=== PATIENT | male | born 1965 | race Caucasian/White ===

== ENCOUNTER 2016-11-15 08:44 | Observation (INO) | payer SELFPAY ==
[2016-11-15] VITALS (7 sets, daily range): BP systolic 112–138; BP diastolic 61–85; PULSE 46–79; RESP 18–21; TEMP 97.6–98.7; O2SAT 95–98
[~2016-11-15] VITALS: Ht 177.8 cm; Wt 80.0 kg
[~2016-11-15 08:44] MED LIST: BACT800T5 PO; FAMO1TAB37 PO; PRED10 PO
--- NOTE | 2016-11-15 09:29 | PD ---
HPI Chief Complaint: Facial Pain or Swelling Time Seen by Provider: 09:15 Travel History International Travel<30 days: No Contact w/Intl Traveler<30days: No History of Present Illness HPI 51-year-old male complains of right-sided facial pain and swelling. Patient states that symptoms started 2 days ago. Patient denies any recent injury. Patient denies any fever chills. Patient states the pain is sharp severe pain localized to the brace facial area. Patient states that he has difficulty with swallowing. Patient denies any chest pain or shortness of breath. Patient denies abdominal pain. Patient denies any nausea vomiting diarrhea. Patient states that the swelling is worse this morning and including around the right eyelids in the right side of face. PFSH Past Medical History Psychiatric: Yes Tetanus Vaccination: < 5 Years Social History Alcohol Use: No Tobacco Use: Yes Substance Use: No Allergies-Medications (Allergen,Severity, Reaction): Coded Allergies: No Known Allergies (Unverified , 11/15/16) Reported Meds & Prescriptions Reported Meds & Active Scripts Active No Active Prescriptions or Reported Medications Review of Systems General / Constitutional: No: Fever Eyes: No: Visual changes HENT: No: Headaches Cardiovascular: No: Chest Pain or Discomfort Respiratory: No: Shortness of Breath Gastrointestinal: No: Abdominal Pain Genitourinary: No: Dysuria Musculoskeletal: No: Pain Skin: No Rash Neurologic: No: Weakness Psychiatric: No: Depression Endocrine: No: Polydipsia Hematologic/Lymphatic: No: Easy Bruising Physical Exam Narrative GENERAL: Well-nourished, well-developed patient. SKIN: Warm and dry. HEAD: Normocephalic. EYES: No scleral icterus. No injection or drainage. NECK: Supple, trachea midline. No JVD or lymphadenopathy. CARDIOVASCULAR: Regular rate and rhythm without murmurs, gallops, or rubs. RESPIRATORY: Breath sounds equal bilaterally. No accessory muscle use. GASTROINTESTINAL: Abdomen soft, non-tender, nondistended. MUSCULOSKELETAL: No cyanosis, or edema. BACK: Nontender without obvious deformity. No CVA tenderness. Patient has redness swelling tenderness induration right facial area. Patient has edema on the right side of face including on the eyelids and the right cheek and right jaw area. Data Data Last Documented VS Vital Signs Date Time Temp Pulse Resp B/P Pulse Ox O2 Delivery O2 Flow Rate FiO2 11/15/16 09:27 18 95 Room Air 11/15/16 08:46 97.6 79 138/85 Orders Complete Blood Count With Diff (11/15/16 09:20) Comprehensive Metabolic Panel (11/15/16 09:20) Prothrombin Time / Inr (Pt) (11/15/16 09:20) Act Partial Throm Time (Ptt) (11/15/16 09:20) Blood Culture (11/15/16 09:20) Chest, Single Ap (11/15/16 09:20) Iv Access Insert/Monitor (11/15/16 09:20) Ecg Monitoring (11/15/16 09:20) Oximetry (11/15/16 09:20) Alcohol (Ethanol) (11/15/16 09:20) Sodium Chlor 0.9% 1000 Ml Inj (Ns 1000 M (11/15/16 09:30) Vancomycin Inj (Vancomycin Inj) (11/15/16 09:30) Piperacil-Tazo 3.375 Gm Premix (Zosyn 3. (11/15/16 09:30) Morphine Inj (Morphine Inj) (11/15/16 10:15) Ondansetron Inj (Zofran Inj) (11/15/16 10:15) Labs Laboratory Tests Test 11/15/16 09:30 White Blood Count 13.1 TH/MM3 Red Blood Count 5.05 MIL/MM3 Hemoglobin 15.1 GM/DL Hematocrit 44.4 % Mean Corpuscular Volume 87.9 FL Mean Corpuscular Hemoglobin 29.9 PG Mean Corpuscular Hemoglobin 34.0 % Concent Red Cell Distribution Width 13.3 % Platelet Count 246 TH/MM3 Mean Platelet Volume 6.9 FL Neutrophils (%) (Auto) 67.9 % Lymphocytes (%) (Auto) 22.2 % Monocytes (%) (Auto) 7.8 % Eosinophils (%) (Auto) 1.5 % Basophils (%) (Auto) 0.6 % Neutrophils # (Auto) 8.9 TH/MM3 Lymphocytes # (Auto) 2.9 TH/MM3 Monocytes # (Auto) 1.0 TH/MM3 Eosinophils # (Auto) 0.2 TH/MM3 Basophils # (Auto) 0.1 TH/MM3 CBC Comment DIFF FINAL Differential Comment Prothrombin Time 10.3 SEC Prothromb Time International 0.9 RATIO Ratio Activated Partial 26.4 SEC Thromboplast Time Sodium Level 140 MEQ/L Potassium Level 3.8 MEQ/L Chloride Level 106 MEQ/L Carbon Dioxide Level 24.4 MEQ/L Anion Gap 10 MEQ/L Blood Urea Nitrogen 10 MG/DL Creatinine 0.96 MG/DL Estimat Glomerular Filtration 83 ML/MIN Rate Random Glucose 97 MG/DL Calcium Level 8.4 MG/DL Total Bilirubin 0.8 MG/DL Aspartate Amino Transf 12 U/L (AST/SGOT) Alanine Aminotransferase 21 U/L (ALT/SGPT) Alkaline Phosphatase 85 U/L Total Protein 7.0 GM/DL Albumin 3.6 GM/DL Ethyl Alcohol Level LESS THAN 3 MG/DL MDM Medical Decision Making Medical Screen Exam Complete: Yes Emergency Medical Condition: Yes Interpretation(s) 10:56 AM. CBC WBC 13.1. Normal differential. CMP within normal limit. Alcohol less than 3. Differential Diagnosis Differential diagnosis including cellulitis, abscess. Narrative Course 51-year-old male with right facial pain and swelling. Normal saline solution 1 25 cc an hour. Vancomycin 1 g IV. Zosyn 3.375 g IV given. Diagnosis Primary Impression: Facial abscess Admitting Information Admitting Physician Requests: Admit Scripts No Active Prescriptions or Reported Meds Jono Shin MD Nov 15, 2016 09:29
[2016-11-15] MEDS ORDERED: PIPERACIL-TAZO 3.375 GM PREMIX 50 ML IV ONE (09:30)
[2016-11-15] MEDS ORDERED: VANCOMYCIN INJ 1,000 MG in SODIUM CHLOR 0.9% 250 ML INJ 250 ML IV ONE (09:30)
[2016-11-15 09:43] LABS: AUTOMATED NEUTROPHIL # 8.9 TH/MM3 (1.8-7.7); BASOPHIL # 0.1 TH/MM3 (0-0.2); BASOPHIL % 0.6 % (0.0-2.0); EOSINOPHIL # 0.2 TH/MM3 (0-0.4); EOSINOPHIL % 1.5 % (0.0-4.0); HEMATOCRIT 44.4 % (39.0-51.0); HEMO FLAGS DIFF FINAL; LYMPH % 22.2 % (9.0-44.0); LYMPHOCYTE # 2.9 TH/MM3 (1.0-4.8); MEAN CELL VOLUME 87.9 FL (80.0-100.0); MEAN CORPUSCULAR HEMOGLOBIN 29.9 PG (27.0-34.0); MONO % 7.8 % (0.0-8.0); NEUT % 67.9 % (16.0-70.0); PLATELET COUNT 246 TH/MM3 (150-450); RED BLOOD COUNT 5.05 MIL/MM3 (4.50-5.90); RED CELL DISTRIBUTION WIDTH 13.3 % (11.6-17.2); WHITE BLOOD COUNT 13.1 TH/MM3 (4.0-11.0)
--- NOTE | 2016-11-15 09:51 | RADRPT ---
EXAM DATE/TIME: 11/15/2016 09:36 [facility] COMPARISON: No previous studies available for comparison. INDICATIONS : Patient has a toothache and mouth has hurt for three days. MEDICAL HISTORY : None. SURGICAL HISTORY : None. ENCOUNTER: Initial ACUITY: 3 days PAIN SCORE: 0/10 LOCATION: chest FINDINGS: A single view of the chest demonstrates the lungs to be symmetrically aerated without evidence of mas s, infiltrate or effusion. The cardiomediastinal contours are unremarkable. Osseous structures are intact. CONCLUSION: Normal examination. Chano Dior MD on November 15, 2016 at 9:46 Board Certified Radiologist. This report was verified electronically.
[2016-11-15 09:53] LABS: APTT (PATIENT) 26.4 SEC (24.3-30.1); INTERNATIONAL NORMALIZED RATIO 0.9 RATIO; PROTHROMBIN TIME - PATIENT 10.3 SEC (9.8-11.6)
[2016-11-15 09:59] LABS: ANION GAP 10 MEQ/L (5-15); AST (GOT) 12 U/L (15-37); BICARBONATE 24.4 MEQ/L (21.0-32.0); BLOOD UREA NITROGEN 10 MG/DL (7-18); CHLORIDE 106 MEQ/L (98-107); GLOMERULAR FILTRATION RATE 83 ML/MIN (>89); POTASSIUM 3.8 MEQ/L (3.5-5.1); SODIUM (NA) 140 MEQ/L (136-145)
[2016-11-15 10:02] LABS: ALKALINE PHOSPHATASE 85 U/L (45-117); ALT (GPT) 21 U/L (12-78); TOTAL BILIRUBIN ADULT 0.8 MG/DL (0.2-1.0)
[2016-11-15] MEDS: SODIUM CHLOR 0.9% 1000 ML INJ 1,000 ML IV SCH (10:08)
[2016-11-15] MEDS ORDERED: MORPHINE SULFATE 4 MG/ML INJ IV PUSH ONE (10:15)
[2016-11-15] MEDS ORDERED: ONDANSETRON HCL 4 MG/2 ML VIAL IV PUSH ONE (10:15)
[2016-11-15] MEDS ORDERED: MAGNESIUM HYDROXIDE SUSP 30 ML CUP PO PRN (11:45)
[2016-11-15] MEDS ORDERED: MORPHINE SULFATE 4 MG/ML INJ IV PRN (11:45)
[2016-11-15] MEDS ORDERED: Vancomycin Consult Pharmacy 1 EA OTHER SCH (11:45)
[2016-11-15] MEDS ORDERED: SENNOSIDES 8.6 MG TAB PO PRN (11:45)
[2016-11-15] MEDS ORDERED: ACETAMINOPHEN/HYDROcodone 325 MG/5 MG TAB PO PRN (11:45)
[2016-11-15] MEDS ORDERED: ONDANSETRON HCL 4 MG/2 ML VIAL IVP PRN (11:45)
[2016-11-15] MEDS: DOCUSATE SODIUM 100 MG CAP PO SCH ×2 (11:45→21:00)
[2016-11-15] MEDS ORDERED: NALOXONE HCL 0.4 MG/ML AMP IV PRN (11:45)
[2016-11-15] MEDS ORDERED: SODIUM CHLORIDE 0.9% FLUSH 5 ML FLUSH FLUSH PRN (11:45)
[2016-11-15] MEDS ORDERED: BISACODYL 10 MG SUPP PR PRN (11:45)
[2016-11-15] MEDS ORDERED: ACETAMINOPHEN 325 MG TAB PO PRN ×2 (11:45)
[2016-11-15] MEDS: NICOTINE 21 MG/24 HR PATCH TD SCH (13:02)
[2016-11-15] MEDS ORDERED: IOHEXOL 350 MG/ML 10 ML VIAL (for RAD DIAG) IV ONE (13:50)
--- NOTE | 2016-11-15 14:32 | RADRPT ---
EXAM DATE/TIME: 11/15/2016 13:43 [facility] COMPARISON: No previous studies available for comparison. INDICATIONS : Right facial swelling for two days. IV CONTRAST: 72 cc Omnipaque 350 (iohexol) IV RADIATION DOSE: 47.82 CTDIvol (mGy) MEDICAL HISTORY : None SURGICAL HISTORY : None. ENCOUNTER: Initial ACUITY: 2 days PAIN SCALE: 7/10 LOCATION: Right facial TECHNIQUE: Volumetric scanning of the facial bones was performed. Using automated exposure control and adjustme nt of the mA and/or kV according to patient size, radiation dose was kept as low as reasonably achiev able to obtain optimal diagnostic quality images. FINDINGS: There is stranding of the subcutaneous fat involving the right face within the infraorbital region. T his is most pronounced overlying the body of the mandible. There is no abscess or fluid collection ap preciated. There is some thickening of the overlying skin. The facial vein remains patent. Small lymp h nodes are seen involving the right neck with the largest lymph node level one in nature measuring 2 .0 x 0.9 cm. No contralateral adenopathy. Mucosal thickening is seen opacifying the ethmoid air cells bilaterally, maxillary sinuses bilaterally as well as the left frontal sinus. CONCLUSION: 1. Cellulitis involving the right face centered over the mandible on the right. No abscess or periodo ntal disease appreciated. 2. Reactive adenopathy on the right. Nicholas Keys Jr., MD on November 15, 2016 at 14:13 Board Certified Radiologist. This report was verified electronically.
--- NOTE | 2016-11-15 14:35 | HHI.HP ---
HPI Service [facility] Primary Care Physician No Primary Care Physician Admission Diagnosis facial abscess Diagnoses: Chief Complaint: Facial swelling Travel History International Travel<30 Days: No Contact w/Intl Traveler <30 Da: No Traveled to Known Affected Are: No History of Present Illness 51-year-old male with no significant past medical history who presented with facial swelling. Patient states that for the past 2 or 3 days he's been having swelling on the right side of his face. He states he woke up with it that way, denies any acute injury. He isn't having constant severe pain on that side. He feels like the swelling was significantly worse yesterday, which made it difficult to speak. He's had decreased appetite. He swallowing okay. He reports that his swelling is better today and he can talk better. He does have broken teeth. He denies any fevers or chills. Denies any shortness of breath or problems breathing. Review of Systems Except as stated in HPI: all other systems reviewed are Neg Past Family Social History Past Medical History Denies Past Surgical History Denies Reported Medications None Allergies: Coded Allergies: No Known Allergies (Unverified , 11/15/16) Active Ordered Medications Current Medications Medications (Trade) Dose Ordered Sig/Dalila Route Start Time Stop Time Status Last Admin Sodium Chloride 1,000 ml @ 125 mls/hr Q8H IV 11/15/16 09:30 11/15/16 10:08 Pharmacy Profile Note 0 ml @ 0 mls/hr UNSCH OTHER 11/15/16 11:45 (Zosyn 3.375 Gm Premix) 50 ml @ 100 mls/hr Q6H IV 11/15/16 16:00 (NS Flush) 2 ml UNSCH PRN FLUSH 11/15/16 11:45 (NS Flush) 2 ml BID FLUSH 11/15/16 21:00 (Tylenol) 650 mg Q4H PRN PO 11/15/16 11:45 (Zofran Inj) 4 mg Q6H PRN IVP 11/15/16 11:45 (Dulcolax Supp) 10 mg DAILY PRN AK 11/15/16 11:45 (Colace) 100 mg Q12HR PO 11/15/16 11:45 (Milk Of Magnlydia Liq) 30 ml Q12H PRN PO 11/15/16 11:45 (Senokot) 17.2 mg Q12H PRN PO 11/15/16 11:45 (Tylenol) 650 mg Q6H PRN PO 11/15/16 11:45 ([place] 5-325 Mg) 1 tab Q4H PRN PO 11/15/16 11:45 ([place] 10-325 Mg) 1 tab Q4H PRN PO 11/15/16 11:45 (Morphine Inj) 1 mg Q3H PRN IV 11/15/16 11:45 (Narcan Inj) 0.4 mg UNSCH PRN IV 11/15/16 11:45 (Habitrol 21 Mg Patch.24 Hr) 1 patch DAILY TD 11/15/16 11:45 11/15/16 13:02 Miscellaneous Information 1 1 HS TD 11/15/16 21:00 (Vancomycin Inj/ NS 500 ml Inj) 515 ml @ 250 mls/hr Q12H IV 11/15/16 18:00 Miscellaneous Information SPECIFIC LAB TO BE DRAWN:VANCOMYCIN TROUGH DATE TO... ONCE ONCE XX 11/17/16 05:45 11/17/16 05:46 Family History Lung cancer Social History Tobacco use Drinks a 4 pack every other day Works doing automotive exhaust work Physical Exam Vital Signs Vital Signs Date Time Temp Pulse Resp B/P Pulse Ox O2 Delivery O2 Flow Rate FiO2 11/15/16 12:15 98.2 46 18 112/85 96 Room Air 11/15/16 09:27 18 95 Room Air 11/15/16 08:46 97.6 79 18 138/85 96 Physical Exam GENERAL: Well-developed well-nourished. In no acute distress. SKIN: Warm and dry. ~4x4 cm area of induration over the right cheek. HEENT: Normocephalic. Pupils equal and round. Mucous membranes pink and moist. Poor dentition with multiple broken teeth. CARDIOVASCULAR: Regular rate and rhythm. No murmur appreciated. RESPIRATORY: No accessory muscle use. Clear to auscultation. Breath sounds equal bilaterally. GASTROINTESTINAL: Abdomen soft, non-tender, nondistended. Bowel sounds x4. MUSCULOSKELETAL: No obvious deformities. No clubbing or cyanosis. No edema. NEUROLOGICAL: Awake and alert. No focal neurological deficits. Moves upper and lower extremities spontaneously. Normal speech. PSYCHIATRIC: Appropriate mood and affect; insight and judgment normal. Laboratory Laboratory Tests Test 11/15/16 09:30 White Blood Count 13.1 Red Blood Count 5.05 Hemoglobin 15.1 Hematocrit 44.4 Mean Corpuscular Volume 87.9 Mean Corpuscular Hemoglobin 29.9 Mean Corpuscular Hemoglobin 34.0 Concent Red Cell Distribution Width 13.3 Platelet Count 246 Mean Platelet Volume 6.9 Neutrophils (%) (Auto) 67.9 Lymphocytes (%) (Auto) 22.2 Monocytes (%) (Auto) 7.8 Eosinophils (%) (Auto) 1.5 Basophils (%) (Auto) 0.6 Neutrophils # (Auto) 8.9 Lymphocytes # (Auto) 2.9 Monocytes # (Auto) 1.0 Eosinophils # (Auto) 0.2 Basophils # (Auto) 0.1 CBC Comment DIFF FINAL Differential Comment Prothrombin Time 10.3 Prothromb Time International 0.9 Ratio Activated Partial 26.4 Thromboplast Time Sodium Level 140 Potassium Level 3.8 Chloride Level 106 Carbon Dioxide Level 24.4 Anion Gap 10 Blood Urea Nitrogen 10 Creatinine 0.96 Estimat Glomerular Filtration 83 Rate Random Glucose 97 Calcium Level 8.4 Total Bilirubin 0.8 Aspartate Amino Transf 12 (AST/SGOT) Alanine Aminotransferase 21 (ALT/SGPT) Alkaline Phosphatase 85 Total Protein 7.0 Albumin 3.6 Ethyl Alcohol Level LESS THAN 3 Date/Time Procedure Status Source Growth 11/15/16 09:30 Aerobic Blood Culture Received Blood Peripheral Pending 11/15/16 09:30 Anaerobic Blood Culture Received Blood Peripheral Pending Result Diagram: 11/15/1630 11/15/1630 Assessment and Plan Assessment and Plan 51-year-old male with no significant past medical history who presented with facial swelling Facial cellulitis: R/O abscess. WBC 13.1. Afebrile. Facial CT pending. Consulted maxillofacial surgery. Continue IV vancomycin and Zosyn. Nothing by mouth pending surgery eval. IVF. Pain control with oral and intravenous narcotics. Alcohol abuse: Patient counseled. CIWA protocol and rally pack. Tobacco abuse: Patient counseled. Nicotine patch. DVT prophylaxis: SCDs Written by Nima Saunders, acting as scribe for Dr. Loza on 11/15/16 at 14:34. All or portions of this note were transcribed by scribe []. I, Dr. Thomas Loza personally performed the history, physical exam, and medical decision making; and confirmed the accuracy of the information in the transcribed note. Authenticated by Dr. Thomas Loza on 11/15/16 at 15:59. Discussed Condition With Patient, Nima Turner Nov 15, 2016 14:35 Thomas Loza MD Nov 15, 2016 15:59
[2016-11-15] MEDS ORDERED: LORazepam 1 MG TAB PO PRN (14:45)
[2016-11-15] MEDS ORDERED: FLUMAZENIL 0.5 MG/5 ML VIAL IV PUSH PRN (14:45)
[2016-11-15] MEDS ORDERED: LORazepam 2 MG TAB PO PRN (14:45)
[2016-11-15] MEDS ORDERED: HALOPERIDOL LACTATE 5 MG/ML AMP IM PRN (14:45)
[2016-11-15] MEDS ORDERED: LORazepam 2 MG/ML VIAL IV PUSH PRN ×4 (14:45)
[2016-11-15] MEDS: ACETAMINOPHEN/HYDROcodone 325 MG/10 MG TAB PO PRN ×2 (15:26→20:55)
[2016-11-15] MEDS: PIPERACIL-TAZO 3.375 GM PREMIX 50 ML IV SCH (15:27)
--- NOTE | 2016-11-15 16:23 | HHI.PR ---
Immediate Post Op Note Procedure Date: Nov 15, 2016 Pre Op Diagnosis: right facial cellulites/abscess/ infected hair follicle Post Op Diagnosis: celine Surgeon: Kristopher Cardona Field Cane Scaler Helper(s): louise Giraldo's nurse Procedure: I & D right facial abscess/cellulitis Findings: pus - sent for culture Complications: none Anesthesia: Local (2:lidocaine with 1:100,000 epi approx 2.5cc) Drains: [place] (1/4 inch) Patient Condition: Good Date/Time of Procedure: SEE SURGICAL CARE RECORD Kristopher Cardona DMD Nov 15, 2016 16:23
--- NOTE | 2016-11-15 16:32 | MB ---
cc: TRINI CARDONA DMD DATE OF CONSULTATION 11/15/2016 REASON FOR CONSULTATION Right facial edema. HISTORY OF THE PRESENT ILLNESS A 51-year-old male who presented to the ER today complaining with swelling and pain on the right side of his face. The patient reports that for the last two to three days he has been having pain which originates from the right face, the region of his nasal labial fold, corner of his lip region. That is where his hair follicles are with this goatee in that region. And then severely tender to palpation to that site. And then the edema and discomfort starts to spread up from the right side from that region there. Denies any fever, chills, nausea, vomiting, any shortness of breath, any difficulty speaking or swallowing or breathing. PAST MEDICAL HISTORY He denies. PAST SURGICAL HISTORY Denies. ALLERGIES DENIES. SOCIAL HISTORY He smokes. And drinks alcohol every several days, several packs of beer. PHYSICAL EXAMINATION VITAL SIGNS: Temperature 98.6, pulse is 48, respirations 20, blood pressure 120/61, oxygen saturation of 96. HEENT: Examination of the face shows mild edema on the right side of the face but he has erythema and tenderness. Appears to have some fluctuance on the right inferior border of the inferior aspect of the nasal labial fold the right side on his face lateral to the right of the corner of the lip in that region. That is why his hair follicles are right there with his arce / goatee in that region. It appears fluctuant. Upon palpation but the patient is very tender to palpation. He has erythema in that site. Intraorally I do not see any edema inside that is communicating inside. No neck edema that is noted. Eyes are wide open. Intraorally generalized poor dentition. The patient is not sure if he popped a pimple there or he got bit by anything in that site. IMAGING CT scan of the facial bones shows swelling in the right side of the mandible, of the soft tissue that region. And there is remarkable swelling right in the area where the patient is having symptoms. No collection that is noted, that I could see at this point. LABORATORY DATA White count is 13.1. H&H is 15.1, 44.4 with platelet count of 246. PT is 10.3, INR is 0.9 and PTT 26.4. IMPRESSION AND PLAN This is a 51-year-old male with a right-sided facial edema abscess versus cellulitis, starting from the right corners of his lip region of the right nasal labial fold lateral to the mandible. Clinically appears to somewhat fluctuant and very tender in the region with erythema. Could be consistent with a foliculitis, hair follicle. Possible MRSA. We will do an I&D in that site at this point. He is already on antibiotics. We hope to send for culture any purulence, any pus that comes out of that site. And hope to change the domonique in to that site. Benefits, risks, indication of the procedure, the procedure in detail and the options of no treatment were all discussed with this patient. Risks not limited to any postop pain, infection, bleeding, damage to the soft tissue, hard tissue, anesthesia complications, recurrence of this infection, further surgeries as required. All questions and concerns were addressed. Consent is signed. Trini Cardona DMD RRT/MALINDA /3:49 PM /4:08 PM EDA
[2016-11-15] MEDS: VANCOMYCIN INJ 1,500 MG in SODIUM CHLORID 0.9% 500 ML INJ 500 ML IV SCH (18:12)
[2016-11-15] MEDS: REMOVE OLD NICODERM (NICOTINE) PATCH TD SCH (21:00)
[2016-11-16] VITALS (9 sets, daily range): BP systolic 110–125; BP diastolic 58–70; PULSE 53–78; RESP 18–21; TEMP 98.4–98.8; O2SAT 94–98
[2016-11-16] MEDS: PIPERACIL-TAZO 3.375 GM PREMIX 50 ML IV SCH ×5 (00:24→21:58)
[2016-11-16] MEDS: SODIUM CHLORIDE 0.9% FLUSH 5 ML FLUSH FLUSH SCH ×3 (00:24→21:00)
[2016-11-16] MEDS: ACETAMINOPHEN/HYDROcodone 325 MG/10 MG TAB PO PRN ×4 (04:50→22:02)
[2016-11-16] MEDS: VANCOMYCIN INJ 1,500 MG in SODIUM CHLORID 0.9% 500 ML INJ 500 ML IV SCH ×2 (05:39→17:57)
[2016-11-16 07:04] LABS: AUTOMATED NEUTROPHIL # 8.8 TH/MM3 (1.8-7.7); BASOPHIL # 0.1 TH/MM3 (0-0.2); BASOPHIL % 0.4 % (0.0-2.0); EOSINOPHIL # 0.2 TH/MM3 (0-0.4); EOSINOPHIL % 1.3 % (0.0-4.0); HEMATOCRIT 39.5 % (39.0-51.0); HEMO FLAGS DIFF FINAL; LYMPH % 15.5 % (9.0-44.0); LYMPHOCYTE # 1.9 TH/MM3 (1.0-4.8); MEAN CELL VOLUME 88.8 FL (80.0-100.0); MEAN CORPUSCULAR HEMOGLOBIN 30.4 PG (27.0-34.0); MEAN CORPUSCULAR HGB CONC 34.2 % (32.0-36.0); MONO % 8.7 % (0.0-8.0); NEUT % 74.1 % (16.0-70.0); PLATELET COUNT 220 TH/MM3 (150-450); RED BLOOD COUNT 4.45 MIL/MM3 (4.50-5.90); RED CELL DISTRIBUTION WIDTH 13.4 % (11.6-17.2)
[2016-11-16 07:37] LABS: BICARBONATE 29.5 MEQ/L (21.0-32.0); POTASSIUM 4.3 MEQ/L (3.5-5.1)
[2016-11-16] MEDS: FOLIC ACID 1 MG TAB PO SCH (07:50)
[2016-11-16] MEDS: MULTIVITAMINS/MINERALS THERAPEUTIC TAB PO SCH (07:51)
[2016-11-16] MEDS: THIAMINE HCL 100 MG TAB PO SCH (07:51)
[2016-11-16] MEDS: NICOTINE 21 MG/24 HR PATCH TD SCH (07:51)
[2016-11-16] MEDS: DOCUSATE SODIUM 100 MG CAP PO SCH ×2 (07:52→21:58)
--- NOTE | 2016-11-16 11:52 | HHI.PR ---
Subjective Remarks Follow-up for facial cellulitis and abscess. Patient had bedside abscess drainage with surgery yesterday. He reports the initial facial pain he was having has improved, but does have some soreness from the I&D. Overall his pain is improved. He states he's been able to eat better, on regular diet. He would like to go home as soon as he is able. Objective Vitals Vital Signs Date Time Temp Pulse Resp B/P Pulse Ox O2 Delivery O2 Flow Rate FiO2 11/16/16 11:41 98.4 67 20 116/69 97 11/16/16 07:44 98.5 53 20 111/68 96 11/16/16 07:00 58 11/16/16 04:51 98.8 68 18 125/70 98 11/16/16 01:30 63 11/15/16 20:39 98.7 64 21 126/74 98 11/15/16 18:22 54 11/15/16 14:38 96 21 11/15/16 14:36 98.6 48 20 120/61 98 11/15/16 12:15 98.2 46 18 112/85 96 Room Air Result Diagram: 11/16/16 0600 11/16/16 0600 Imaging Last Impressions Chest X-Ray 11/15/16 0920 Signed Impressions: Service Date/Time: Tuesday, November 15, 2016 09:36 - CONCLUSION: Normal examination. Chano Dior MD Maxillofacial CT 11/15/16 0000 Signed Impressions: Service Date/Time: Tuesday, November 15, 2016 13:43 - CONCLUSION: 1. Cellulitis involving the right face centered over the mandible on the right. No abscess or periodontal disease appreciated. 2. Reactive adenopathy on the right. Nicholas Keys Jr., MD Objective Remarks GENERAL: Well-developed well-nourished. In no acute distress. SKIN: Warm and dry. Right face with some induration, s/p I&D with [place] drain in place HEENT: Normocephalic. Pupils equal and round. Mucous membranes pink and moist. CARDIOVASCULAR: Regular rate and rhythm. No murmur appreciated. RESPIRATORY: No accessory muscle use. Clear to auscultation. Breath sounds equal bilaterally. GASTROINTESTINAL: Abdomen soft, non-tender, nondistended. Bowel sounds x4. MUSCULOSKELETAL: No obvious deformities. No clubbing or cyanosis. No edema. NEUROLOGICAL: Awake and alert. No focal neurological deficits. Moves upper and lower extremities spontaneously. Normal speech. PSYCHIATRIC: Appropriate mood and affect; insight and judgment normal. A/P Assessment and Plan 51-year-old male with no significant past medical history who presented with facial swelling Facial cellulitis: R/O abscess. WBC decreased from 13.1 to 12.0. Afebrile. Facial CT showed cellulitis. Consulted maxillofacial surgery, performed bedside I&D, cultures pending. Continue IV vancomycin and Zosyn. Tolerating full diet. IVF. Pain control with [place] as needed and IV morphine for breakthrough. Alcohol abuse: Patient counseled. CIWA protocol and rally pack. Tobacco abuse: Patient counseled. Nicotine patch. DVT prophylaxis: SCDs Written by Nima Saunders, acting as scribe for Dr. Loza on 11/16/16 at 11:52. All or portions of this note were transcribed by scribe []. I, Dr. Thomas Loza personally performed the history, physical exam, and medical decision making; and confirmed the accuracy of the information in the transcribed note. Authenticated by Dr. Thomas Loza on 11/16/16 at 16:32. Discharge Planning Follow-up cultures and maxillofacial recommendations. Possible discharge later today vs tomorrow Nima Elise Nov 16, 2016 11:52 Thomas Loza MD Nov 16, 2016 16:32
[2016-11-16] MEDS ORDERED: HYDR-3583 PO (16:33)
--- NOTE | 2016-11-16 19:00 | HHI.PR ---
Subjective Remarks pt seen and examined this evening, AAOx3, NAD, reports feeling much better, tolerating po well POD 1 s/p I & D right facial cellulitis / abscess, Objective Vital Signs Date Time Temp Pulse Resp B/P Pulse Ox O2 Delivery O2 Flow Rate FiO2 11/16/16 16:01 98.5 58 19 110/62 97 11/16/16 11:41 98.4 67 20 116/69 97 11/16/16 11:04 94 21 11/16/16 07:44 98.5 53 20 111/68 96 11/16/16 07:00 58 11/16/16 04:51 98.8 68 18 125/70 98 11/16/16 01:30 63 11/15/16 20:39 98.7 64 21 126/74 98 Result Diagram: 11/16/16 0600 11/16/16 0600 Objective Remarks significant decrease in right facial edema no palpable collection noted, tenderness/erythema right facial wound/surgical site decreaed no pus noted drain in place increased range of opening mouth, eye wide open wbc decreased GRAM STAIN Final 11/16/16-922 RARE WBC FEW GRAM POSITIVE COCCI IN PAIRS WOUND CULTURE Preliminary 11/16/16-1458 HEAVY GROWTH NORMAL SKIN NANETTE AT 24HRS no fungei, AFB pending Assessment and Plan Assessment and Plan POD 1 s/p I & D right facial cellulitis / abscess, vss, afebrile plan to remove [place] drain tomorrow am continue antibiotics pt much improved today Kristopher Cardona DMD Nov 16, 2016 19:00
[2016-11-16] MEDS: SODIUM CHLOR 0.9% 1000 ML INJ 1,000 ML IV SCH ×3 (20:06→22:47)
[2016-11-16] MEDS: REMOVE OLD NICODERM (NICOTINE) PATCH TD SCH (21:00)
[2016-11-17 00:28] VITALS: BP 105/54; PULSE 78; RESP 18; TEMP 98.7; O2SAT 98
[2016-11-17] MEDS: PIPERACIL-TAZO 3.375 GM PREMIX 50 ML IV SCH (03:39)
[2016-11-17] MEDS: ACETAMINOPHEN/HYDROcodone 325 MG/10 MG TAB PO PRN (03:39)
[2016-11-17 04:08] VITALS: BP 89/53; PULSE 87; RESP 18; TEMP 97.8; O2SAT 97
[2016-11-17] MEDS: VANCOMYCIN INJ 1,500 MG in SODIUM CHLORID 0.9% 500 ML INJ 500 ML IV SCH (04:44)
[2016-11-17] MEDS ORDERED: SODIUM CHLOR 0.9% 250 ML INJ 250 ML IV PRN (05:45)
[2016-11-17] MEDS ORDERED: PHARMACY ORDERED LAB XX ONE ×2 (05:45→17:45)
--- NOTE | 2016-11-17 07:45 | HHI.PR ---
Subjective Remarks pt seen and examined this morning, AAOx3, NAD, reports feeling much better, tolerating po well no complaints POD 2 s/p I & D right facial cellulitis / abscess, Objective Vital Signs Date Time Temp Pulse Resp B/P Pulse Ox O2 Delivery O2 Flow Rate FiO2 11/17/16 04:08 97.8 87 18 89/53 97 11/17/16 00:28 98.7 78 18 105/54 98 11/16/16 22:14 56 11/16/16 20:14 98.8 78 21 114/58 98 11/16/16 16:01 98.5 58 19 110/62 97 11/16/16 11:41 98.4 67 20 116/69 97 11/16/16 11:04 94 21 11/16/16 07:44 98.5 53 20 111/68 96 I/O 11/16/16 11/16/16 11/16/16 11/17/16 11/17/16 11/17/16 07:00 15:00 23:00 07:00 15:00 23:00 Intake Total 800 ml Balance 800 ml Intake IV Total 800 ml Result Diagram: 11/16/16 0600 11/16/16 0600 Objective Remarks decrease in right facial edema no palpable collection noted, tenderness/erythema right facial wound/surgical site decreased no pus noted drain in place increased range of opening mouth, eye wide open wbc decreased GRAM STAIN Final 11/16/16-0923 RARE WBC FEW GRAM POSITIVE COCCI IN PAIRS WOUND CULTURE Preliminary 11/16/16-1458 HEAVY GROWTH NORMAL SKIN NANETTE AT 24HRS no fungi, AFB pending Assessment and Plan Assessment and Plan POD 2 s/p I & D right facial cellulitis / abscess, vss, afebrile Removed [place] drain right face continue antibiotics pt much improved today ok to dc to home from oms standpoint d/c to home with antibiotics f/up dr. cardona as needed -[phone] no shaving right face, area near hair/arce Kristopher Cardona DMD Nov 17, 2016 07:45
[2016-11-17] MEDS ORDERED: CIPR-9 PO (07:51)
[2016-11-17] MEDS ORDERED: BACT800T5 PO (07:51)
--- NOTE | 2016-11-17 07:51 | HHI.DCPOC ---
Discharge Care Plan Diagnosis: (1) Facial abscess Goals to Promote Your Health * To prevent worsening of your condition and complications * To maintain your health at the optimal level Directions to Meet Your Goals Take your medications as prescribed Follow your dietary instruction Follow activity as directed Keep your appointments as scheduled Take your immunizations and boosters as scheduled If your symptoms worsen call your PCP, if no PCP go to Urgent Care Center or Emergency Room Smoking is Dangerous to Your Health. Avoid second hand smoke Call the 24-hour hour crisis hotline for domestic abuse at Valerie Kruger PA-C Nov 17, 2016 07:51
--- NOTE | 2016-11-17 07:54 | HHI.DS ---
cc: Kristopher Cardona DMD Discharge Summary Admission Date Nov 15, 2016 at 11:41 Discharge Date: Nov 17, 2016 Admitting Diagnosis facial abscess (1) Facial abscess ICD Code: L02.01 Diagnosis: Principal Procedures Facial abscess bedside I&D by Dr. Cardona Brief History - From Admission 51-year-old male with no significant past medical history who presented with facial swelling. Patient states that for the past 2 or 3 days he's been having swelling on the right side of his face. He states he woke up with it that way, denies any acute injury. He isn't having constant severe pain on that side. He feels like the swelling was significantly worse yesterday, which made it difficult to speak. He's had decreased appetite. He swallowing okay. He reports that his swelling is better today and he can talk better. He does have broken teeth. He denies any fevers or chills. Denies any shortness of breath or problems breathing. CBC/BMP: 11/16/16 0600 11/16/16 0600 Significant Findings Laboratory Tests Test 11/15/16 11/16/16 11/17/16 09:30 06:00 05:40 White Blood Count 13.1 TH/MM3 12.0 TH/MM3 (4.0-11.0) (4.0-11.0) Mean Platelet Volume 6.9 FL (7.0-11.0) Neutrophils # (Auto) 8.9 TH/MM3 8.8 TH/MM3 (1.8-7.7) (1.8-7.7) Monocytes # (Auto) 1.0 TH/MM3 1.0 TH/MM3 (0-0.9) (0-0.9) Estimat Glomerular Filtration 83 ML/MIN (>89) 79 ML/MIN (>89) Rate Calcium Level 8.4 MG/DL (8.5-10.1) Aspartate Amino Transf 12 U/L (15-37) (AST/SGOT) Red Blood Count 4.45 MIL/MM3 (4.50-5.90) Neutrophils (%) (Auto) 74.1 % (16.0-70.0) Monocytes (%) (Auto) 8.7 % (0.0-8.0) Vancomycin Level Trough 28.7 MCG/ML (5.0-10.0) Imaging Last Impressions Chest X-Ray 11/15/16 0920 Signed Impressions: Service Date/Time: Tuesday, November 15, 2016 09:36 - CONCLUSION: Normal examination. Chano Dior MD Maxillofacial CT 11/15/16 0000 Signed Impressions: Service Date/Time: Tuesday, November 15, 2016 13:43 - CONCLUSION: 1. Cellulitis involving the right face centered over the mandible on the right. No abscess or periodontal disease appreciated. 2. Reactive adenopathy on the right. Nicholas Keys Jr., MD PE at Discharge GENERAL: Well-developed well-nourished. In no acute distress. SKIN: Warm and dry. Right face with some induration, s/p I&D with [place] drain in place HEENT: Normocephalic. Pupils equal and round. Mucous membranes pink and moist. CARDIOVASCULAR: Regular rate and rhythm. No murmur appreciated. RESPIRATORY: No accessory muscle use. Clear to auscultation. Breath sounds equal bilaterally. GASTROINTESTINAL: Abdomen soft, non-tender, nondistended. Bowel sounds x4. MUSCULOSKELETAL: No obvious deformities. No clubbing or cyanosis. No edema. NEUROLOGICAL: Awake and alert. No focal neurological deficits. Moves upper and lower extremities spontaneously. Normal speech. PSYCHIATRIC: Appropriate mood and affect; insight and judgment normal. Pt update on day of discharge Follow up for facial abscess. The patient reports feeling well today. He wants to go home. No fevers overnight. Drain removed by Dr. Cardona this morning, discussed with him, cleared for discharge. Hospital Course 51-year-old male with no significant past medical history who presented with facial swelling Facial cellulitis & abscess: WBC decreased from 13.1 to 12.0. Afebrile. Facial CT showed cellulitis. Consulted maxillofacial surgery, performed bedside I&D, cultures with normal skin domonique so far. On IV vancomycin and Zosyn. Tolerating full diet. IVF. Pain control with [place] as needed and IV morphine for breakthrough. Counseled regarding narcotics. Drain removed by Dr. Cardona this morning, cleared for discharge. Will discharge on po Cipro and Bactrim x12 days (total 2 weeks abx). Alcohol abuse: Patient counseled. CIWA protocol and rally pack. Tobacco abuse: Patient counseled. Nicotine patch. DVT prophylaxis: SCDs Written by Valerie Kruger, acting as scribe for Dr. Loza on 11/17/16 at 08: 05. All or portions of this note were transcribed by scribe []. I, Dr. Thomas Loza personally performed the history, physical exam, and medical decision making; and confirmed the accuracy of the information in the transcribed note. Authenticated by Dr. Thomas Loza on 11/17/16 at 13:47. Pt Condition on Discharge: Stable Discharge Disposition: Discharge Home Discharge Time: <= 30 minutes Discharge Instructions DIET: Follow Instructions for: As Tolerated, No Restrictions Activities you can perform: Regular-No Restrictions Follow up Referrals: Ear Nose Throat - 1 Week with Kristopher Cardona DMD PCP Follow-up - 1 Week New Medications: Ciprofloxacin (Cipro) 500 Mg Tab 500 MG PO BID Infection #24 Ref 0 TAB Sulfamethoxazole-Trimethoprim (Bactrim DS) 800-160 Mg Tab 1 TAB PO BID Infection #24 Ref 0 TAB Hydrocodone-Acetaminophen (Hydrocodone-Acetaminophen) 10-325 mg Tab 1 TAB PO Q6HR PRN pain #28 TAB Valerie Kruger PA-C Nov 17, 2016 07:53 Thomas Loza MD Nov 17, 2016 13:47
[2016-11-17 08:00] VITALS: PULSE 47
[2016-11-17 08:41] VITALS: BP 140/74; PULSE 70; RESP 20; TEMP 97.6; O2SAT 95
[2016-11-17] MEDS: FOLIC ACID 1 MG TAB PO SCH (08:49)
[2016-11-17] MEDS: MULTIVITAMINS/MINERALS THERAPEUTIC TAB PO SCH (08:50)
[2016-11-17] MEDS: NICOTINE 21 MG/24 HR PATCH TD SCH (08:51)
[2016-11-17] MEDS: SODIUM CHLORIDE 0.9% FLUSH 5 ML FLUSH FLUSH SCH (08:51)
[2016-11-17] MEDS: DOCUSATE SODIUM 100 MG CAP PO SCH (08:52)
[2016-11-17] MEDS: THIAMINE HCL 100 MG TAB PO SCH (08:53)
--- NOTE | 2016-11-17 14:08 | MP ---
cc: TRINI CARDONA DMD DATE OF SURGERY: November 15, 2016 PREOPERATIVE DIAGNOSIS Right facial cellulitis/abscess/infected hair follicle. POSTOPERATIVE DIAGNOSIS Right facial cellulitis/abscess/infected hair follicle. PROCEDURE Incision and drainage right facial abscess and cellulitis. SURGEON Dr. Cardona. CERTIFIED MEDICAL CODING SPECIALIST Kristal, the patient's nurse. ANESTHESIA Local with 2% lidocaine with 1:100,000 epinephrine, approximately 2.5 ccs. FINDINGS Pus which is sent for culture. COMPLICATIONS None. DRAINS Quater-inch [place] drain placed. DISPOSITION The patient tolerated the procedure well. INDICATIONS FOR PROCEDURE This is a 51-year-old male who for the past 2 to 3 days has been having pain on the right side of his face, inferior aspect of his nasal labial fold, lateral to the mandible and lateral to the right side of the corner of his angle of his lip. That is where his hair is, like his goatee region. The patient is having severe pain. Clinically I can feel some palpable collection. Plan is doing incision and drainage of this site. Benefits, risks, indication of the procedure, procedure in detail were all discussed with this patient. All questions and concerns addressed. Consent is signed in the chart. PROCEDURE IN DETAIL This procedure was done in the ER at bedside in [place]. The patient was draped in the sterile fashion. Betadine prep was done over the operative site which is the right side of his face lateral to his lips, inferior border of the nasal labial fold, lateral to the aspect of the mandible. Once Betadine prep was done 2% lidocaine with 1:100,000 epinephrine was injected over the operative site. A number 11 blade was used to poke a little hole into the site where the greatest amount of fluctuance was noted. And then a hemostat was used to do a blunt dissection at this time, pus came out and this has been sent for culture. Went superiorly, laterally, medially and inferiorly all sites are on this site. Pus came out and no more pus is coming out at this point. Irrigated the site with saline solution. Finally a quarter-inch [place] drain was placed, attached with a 2-0 silk suture. Saline irrigation was done again. The patient tolerated the procedure well. No complications noted. The patient reports feeling immediate relief of the pressure from this pus, has made him feel much better, the patient is more comfortable. Trini Cardona DMD RRT/JAMES /4:23 PM /1:34 PM [facility] CENTERHilary
== END 2016-11-17 10:42 | disposition home or self-care (01) ==
LOC: NEPA 08:44 → NEDA 11:41 → INTOOBSV 11:41 → NEPHCDU 12:39
PROVIDERS: ADMIT Internal Medicine; ATTEND Internal Medicine
DX: L03.211 Cellulitis of face (principal); F10.10 Alcohol abuse, uncomplicated; A48.8 Other specified bacterial diseases; F17.200 Nicotine dependence, unspecified, uncomplicated
CPT/HCPCS: 10061; 70487; 71010; 80048; 80053; 80202; 80307; 85025; 85610; 85730; 86403; 87015; 87040; 87070; 87076; 87102; 87116; 87185; 87205; 87206; 96361; 96374; 96375; 99284; G0378; J2270; J2405; J2543; J3370; J7030; J7040; J7050; Q9967

== ENCOUNTER 2016-12-16 13:16 | Emergency (ER) | payer SELFPAY ==
[~2016-12-16] VITALS: Ht 177.8 cm; Wt 85.0 kg
[~2016-12-16 13:16] MED LIST changes: +CIPR-9 PO; -FAMO1TAB37 PO; +HYDR-3583 PO; -PRED10 PO
[2016-12-16 13:17] VITALS: BP 149/80; PULSE 68; RESP 20; TEMP 98.7; O2SAT 98
--- NOTE | 2016-12-16 13:39 | PD ---
Physical Exam Date Seen by Provider: Dec 16, 2016 Time Seen by Provider: 13:37 Narrative 51 year old male presents to the emergency department for evaluation of a swollen lip that he woke up with yesterday morning and this morning. Lip swelling goes down as the day goes on. He also complains of left ear since yesterday morning as well. He states sticking his finger in his ear helps his pain. Vital signs reviewed. Patient awaiting bed placement. Data Data Last Documented VS Vital Signs Date Time Temp Pulse Resp B/P Pulse Ox O2 Delivery O2 Flow Rate FiO2 12/16/16 13:17 98.7 68 20 149/80 98 Room Air [facility] Supervised Visit with DIANE: Lora Peralta Dec 16, 2016 13:39
--- NOTE | 2016-12-16 14:04 | PD ---
HPI . right sided facial swelling, neck pain Chief Complaint: ENT Complaint Time Seen by Provider: 14:04 Travel History International Travel<30 days: No Contact w/Intl Traveler<30days: No Traveled to known affect area: No History of Present Illness HPI 51-year-old male here with complaints of right sided facial swelling, neck pain and ear pain for the past 2 days. Patient tells me that all of a sudden these issues came out of nowhere. He denies any fever or chills. Of note he was recently seen in November for similar issues. He was admitted for facial cellulitis/abscess, I&D and received antibiotic treatment. This appears to be recurrence of the same issue. He does not have a primary care doctor. He is currently living in a tree house and has no running water or electricity. He is unable to care for himself properly. He has teeth that are in need of dental care. He is unable to afford at this time. PFSH Past Medical History Blood Disorders: No Cancer: No Cardiovascular Problems: No High Cholesterol: No Congestive Heart Failure: No Endocrine: No Immune Disorder: No Musculoskeletal: Yes (right tennis elbow) Neurologic: No Psychiatric: Yes Reproductive: No Respiratory: No Social History Alcohol Use: No Tobacco Use: Yes Substance Use: No Allergies-Medications (Allergen,Severity, Reaction): Coded Allergies: No Known Allergies (Unverified , 12/16/16) Reported Meds & Prescriptions Reported Meds & Active Scripts Active Bactrim DS (Sulfamethoxazole-Trimethoprim) 800-160 Mg Tab 1 Tab PO BID Penicillin V Potassium 500 Mg Tab 500 Mg PO Q6H 10 Days Review of Systems HENT: Positive: Other (right sided facial edema, pain, swelling) Physical Exam Narrative GENERAL: AAO x 3, no acute distress, Well-nourished, well-developed patient. SKIN: Warm and dry. No visible rashes or bruising. Right side of facial edematous, tender to touch, appears to have a slight fluid collection (very hard to determine with pain patient is experiencing), HEAD: Normocephalic and atraumatic. EYES: No scleral icterus. No injection or drainage. b/l eyelids with minimal edema, erythema, ENT: No nasal drainage noted. Mucous membranes pink. Airway patent. TM normal. NECK: Supple, trachea midline. No JVD. CARDIOVASCULAR: Regular rate and rhythm without murmurs, gallops, or rubs. RESPIRATORY: Breath sounds equally diminished bilaterally. No accessory muscle use. No rhonchi or rales. GASTROINTESTINAL: Abdomen soft, non-tender, nondistended. EXTREMITIES: No cyanosis or edema. BACK: Nontender without obvious deformity. No CVA tenderness. PSYCH: AAO x 3, normal affect. Data Data Last Documented VS Vital Signs Date Time Temp Pulse Resp B/P Pulse Ox O2 Delivery O2 Flow Rate FiO2 12/16/16 14:53 58 18 130/74 96 12/16/16 13:17 98.7 Room Air Orders Penicillin V Potassium (Veetids) (12/16/16 15:15) Sulfamet-Trimeth Ds 800-160 Mg (Bactrim (12/16/16 15:15) MDM Medical Decision Making Medical Screen Exam Complete: Yes Emergency Medical Condition: Yes Medical Record Reviewed: Yes Differential Diagnosis facial cellulitis, facial abscess, dental infection Narrative Course 51-year-old male here with complaints of right sided facial swelling, neck pain and ear pain for the past 2 days. Patient tells me that all of a sudden these issues came out of nowhere. He denies any fever or chills. Of note he was recently seen in November for similar issues. He was admitted for facial cellulitis/abscess, I&D and received antibiotic treatment. This appears to be recurrence of the same issue. He does not have a primary care doctor. He is currently living in a tree house and has no running water or electricity. He is unable to care for himself properly. He has teeth that are in need of dental care. He is unable to afford at this time. Patient seen and examined. He appears to have recurrence of his facial cellulitis and abscess. He will need a medical bed for further evaluation and treatment. He will be transferred and that provider will determine his disposition. Scripts Sulfamethoxazole-Trimethoprim (Bactrim DS)800-160 Mg Tab1 Tab PO BID #20 TAB Ref 0 Prov:Ida Fu MD 12/16/16 Penicillin V Potassium 500 Mg [id number] Mg PO Q6H 10 Days Ref 0 Prov:Ida Fu MD 12/16/16 Condition: Stable Annabelle Caldwell Dec 16, 2016 14:04
[2016-12-16 14:53] VITALS: BP 130/74; PULSE 58; RESP 18; O2SAT 96
[2016-12-16] MEDS ORDERED: PENI500T PO (14:59)
[2016-12-16] MEDS ORDERED: BACT800T5 PO (14:59)
--- NOTE | 2016-12-16 14:59 | PD ---
HPI Chief Complaint: ENT Complaint Time Seen by Provider: 13:42 Travel History International Travel<30 days: No Contact w/Intl Traveler<30days: No Traveled to known affect area: No History of Present Illness HPI This is a 51-year-old male who presents to the emergency department with swelling and pain in his right lip, intermittent, moderate severity, waxing and waning starting 2 days ago, with no associated drainage. Patient has a history of a facial abscess for which he was hospitalized 1 month ago. He says this is not nearly as severe. He thought he might of been bitten by a bug. He denies any fevers or chills. He notes he has bad dentition. [place]. 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 PFSH Past Medical History Blood Disorders: No Cancer: No Cardiovascular Problems: No High Cholesterol: No Congestive Heart Failure: No Endocrine: No Immune Disorder: No Musculoskeletal: Yes (right tennis elbow) Neurologic: No Psychiatric: Yes Reproductive: No Respiratory: No Social History Alcohol Use: No Tobacco Use: Yes Substance Use: No Allergies-Medications (Allergen,Severity, Reaction): Coded Allergies: No Known Allergies (Unverified , 11/15/16) Reported Meds & Prescriptions Reported Meds & Active Scripts Active Review of Systems Except as stated in HPI: all other systems reviewed are Neg Physical Exam Narrative GENERAL:Well appearing, no acute distress SKIN: 3 cm area of fullness and induration over the right upper lateral lip with no underlying tenderness of the gums and no swelling of the maxilla. HEAD: Atraumatic. Normocephalic. EYES: Pupils equal and round. No injection or drainage. ENT: Moist mucous membranes NECK: Trachea midline. CARDIOVASCULAR: Regular rate and rhythm. No murmur appreciated. RESPIRATORY: Clear to auscultation. Breath sounds equal bilaterally. GASTROINTESTINAL: Abdomen soft, non-tender, nondistended. MUSCULOSKELETAL: No obvious deformities. NEUROLOGICAL: Awake and alert. No obvious cranial nerve deficits. Moving all extremities. PSYCHIATRIC: Appropriate mood and affect; insight and judgment normal. Data Data Last Documented VS Vital Signs Date Time Temp Pulse Resp B/P Pulse Ox O2 Delivery O2 Flow Rate FiO2 12/16/16 14:53 58 18 130/74 96 12/16/16 13:17 98.7 Room Air MDM Medical Decision Making Medical Screen Exam Complete: Yes Emergency Medical Condition: Yes Interpretation(s) Afebrile, no tachycardia, hypertensive Prior wound culture grew Fusobacterium Necrophorum Differential Diagnosis Cellulitis, abscess, sepsis, Lemierre's syndrome Narrative Course This is a 51-year-old male with an area of discreet swelling on the right side of his upper lip in the area where he had a facial cellulitis and abscess in the past. His prior wound culture grew Fusobacterium Necrophorum. He is nontoxic appearing. I think currently he is appropriate for outpatient antibiotic therapy. Patient will be discharged on penicillin for Fusobacterium and Bactrim for possible superimposed MRSA. He was advised to apply warm compresses to the area which he says he is able to do because he has a water heater. Patient will be discharged. Diagnosis Primary Impression: Facial cellulitis Patient Instructions: General Instructions Additional Instructions: If you develop fever, increasing redness, warmth, or spreading of your infection , or severe pain return to the emergency department immediately as you may require antibiotics through your IV. Complete your course of antibiotics as prescribed. Med/Other Pt SpecificInfo: Prescription(s) given Scripts Sulfamethoxazole-Trimethoprim (Bactrim DS)800-160 Mg Tab1 Tab PO BID #20 TAB Ref 0 Prov:Ida Fu MD 12/16/16 Penicillin V Potassium 500 Mg [id number] Mg PO Q6H 10 Days Ref 0 Prov:Ida Fu MD 12/16/16 Disposition: 01 DISCHARGE HOME Condition: Stable Ida Fu MD Dec 16, 2016 14:59
[2016-12-16] MEDS ORDERED: PENICILLIN V POTASSIUM 500 MG TAB PO ONE (15:15)
[2016-12-16] MEDS ORDERED: SULFAMETHOXAZOLE-TRIMETHOPRIM DS 800-160 MG TAB PO ONE (15:15)
== END 2016-12-16 15:32 | disposition home or self-care (01) ==
LOC: NEPD 13:16
DX: L03.211 Cellulitis of face (principal); H92.01 Otalgia, right ear; M54.2 Cervicalgia; Z72.0 Tobacco use
CPT/HCPCS: 99283

== ENCOUNTER 2017-01-09 12:45 | Emergency (ER) | payer SELFPAY ==
[~2017-01-09] VITALS: Ht 177.8 cm; Wt 80.0 kg
[~2017-01-09 12:45] MED LIST changes: -CIPR-9 PO; -HYDR-3583 PO; +PENI500T PO
[2017-01-09 12:46] VITALS: BP 133/80; PULSE 80; RESP 17; TEMP 98.4; O2SAT 99
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
[2017-01-09] MEDS ORDERED: BACT800T5 PO (13:05)
== END 2017-01-09 13:30 | disposition home or self-care (01) ==
LOC: NEPK 12:45
DX: L03.221 Cellulitis of neck (principal); Z72.0 Tobacco use
CPT/HCPCS: 99282

== ENCOUNTER 2017-01-12 10:24 | Emergency (ER) | payer SELFPAY ==
[~2017-01-12] VITALS: Ht 177.8 cm; Wt 79.5 kg
[2017-01-12 10:27] VITALS: BP 127/65; PULSE 66; RESP 16; TEMP 98.8; O2SAT 96
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
[2017-01-12] MEDS ORDERED: CEPH-460 PO (10:52)
[2017-01-12] MEDS ORDERED: IBUP800T23 PO (10:52)
== END 2017-01-12 11:08 | disposition home or self-care (01) ==
LOC: NEPK 10:24
DX: L02.11 Cutaneous abscess of neck (principal); F17.210 Nicotine dependence, cigarettes, uncomplicated; W57.XXXD Bitten or stung by nonvenomous insect and other nonvenomous arthropods, subsequent encounter
CPT/HCPCS: 99281

== ENCOUNTER 2017-02-07 15:12 | Emergency (ER) | payer SELFPAY ==
[~2017-02-07] VITALS: Ht 177.8 cm; Wt 80.0 kg
[~2017-02-07 15:12] MED LIST changes: +CEPH-460 PO; +IBUP800T23 PO
[2017-02-07 15:13] VITALS: BP 151/82; PULSE 83; RESP 16; TEMP 98.2; O2SAT 98
[2017-02-07] MEDS ORDERED: AMOX500C PO (15:42)
[2017-02-07] MEDS ORDERED: PERI0.126 SWISH-SPIT (15:42)
[2017-02-07] MEDS ORDERED: IBUP800T23 PO (15:42)
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
[2017-02-07] MEDS ORDERED: IBUPROFEN 800 MG TAB PO ONE (16:00)
== END 2017-02-07 16:18 | disposition home or self-care (01) ==
LOC: NEPK 15:12
DX: K08.89 Other specified disorders of teeth and supporting structures (principal); H92.01 Otalgia, right ear; F17.200 Nicotine dependence, unspecified, uncomplicated; Z87.39 Personal history of other diseases of the musculoskeletal system and connective tissue; Z86.59 Personal history of other mental and behavioral disorders
CPT/HCPCS: 99283

== ENCOUNTER 2017-02-28 12:39 | Emergency (ER) | payer SELFPAY ==
[~2017-02-28] VITALS: Ht 177.8 cm; Wt 85.0 kg
[~2017-02-28 12:39] MED LIST changes: +AMOX500C PO; +PERI0.126 SWISH-SPIT
[2017-02-28 12:40] VITALS: BP 130/74; PULSE 80; RESP 15; TEMP 98.2; O2SAT 95
--- NOTE | 2017-02-28 12:53 | PD ---
Physical Exam Date Seen by Provider: Feb 28, 2017 Time Seen by Provider: 12:51 Data Data Last Documented VS Vital Signs Date Time Temp Pulse Resp B/P Pulse Ox O2 Delivery O2 Flow Rate FiO2 02/28/17 12:40 98.2 80 15 130/74 95 MDM Supervised Visit with DIANE: No Narrative Course 51 YO M with complaint of pain 2/2 multiple ant bites since yesterday. + N/V. Vitals reviewed. Patient seen in triage, awaiting bed placement. Ritika Knutson Feb 28, 2017 12:52
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
[2017-02-28] MEDS ORDERED: RANI150T PO (13:00)
[2017-02-28] MEDS ORDERED: PRED20 PO (13:00)
[2017-02-28] MEDS ORDERED: DIPH25TA5 PO (13:00)
== END 2017-02-28 13:24 | disposition home or self-care (01) ==
LOC: NEPK 12:39
DX: S30.861A Insect bite (nonvenomous) of abdominal wall, initial encounter (principal); W57.XXXA Bitten or stung by nonvenomous insect and other nonvenomous arthropods, initial encounter; Y93.H3 Activity, building and construction; Y92.9 Unspecified place or not applicable; Y99.9 Unspecified external cause status
CPT/HCPCS: 99283

== ENCOUNTER 2017-09-19 12:50 | Emergency (ER) | payer SELFPAY ==
[~2017-09-19 12:50] MED LIST changes: -AMOX500C PO; -BACT800T5 PO; -CEPH-460 PO; +DIPH25TA5 PO; -IBUP800T23 PO; -PENI500T PO; -PERI0.126 SWISH-SPIT; +PRED20 PO; +RANI150T PO
[2017-09-19 12:51] VITALS: BP 141/78; PULSE 76; RESP 16; TEMP 98.1; O2SAT 98
--- NOTE | 2017-09-19 13:36 | RADRPT ---
EXAM DATE/TIME: 09/19/2017 13:24 [facility] COMPARISON: No previous studies available for comparison. INDICATIONS : Cough. Patient states he was sick and then developed a skin rash on his body. MEDICAL HISTORY : None. SURGICAL HISTORY : None. ENCOUNTER: Initial ACUITY: 3 days PAIN SCORE: 0/10 LOCATION: Bilateral chest FINDINGS: PA and lateral views of the chest demonstrate a normal-sized cardiac silhouette. There is no effusion , consolidation, or pneumothorax. The bones and soft tissues demonstrate no acute abnormality. CONCLUSION: No acute cardiopulmonary abnormality is identified. Chano Barrow MD on September 19, 2017 at 13:33 Board Certified Radiologist. This report was verified electronically.
[2017-09-19] MEDS ORDERED: AMOX500T PO (15:17)
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
[2017-09-19] MEDS ORDERED: PRED20 PO (15:20)
[2017-09-19] MEDS ORDERED: DEXAMETHASONE SOD PHOS 4 MG/ML VIAL IM ONE (15:30)
== END 2017-09-19 15:44 | disposition home or self-care (01) ==
LOC: NEPK 12:50
DX: J02.9 Acute pharyngitis, unspecified (principal); R21 Rash and other nonspecific skin eruption; Z72.0 Tobacco use
CPT/HCPCS: 71046; 96372; 99284; J1100